=== PATIENT | male | born 1960 | race Caucasian/White ===

== ENCOUNTER 2017-04-23 17:44 | Emergency (ER) | payer SELFPAY ==
[~2017-04-23] VITALS: Ht 185.4 cm; Wt 110.0 kg
[~2017-04-23 17:44] MED LIST: HYDR-3677; HYDR10TA16 PO; NAPR-576 PO; SOMA350T PO
[2017-04-23 17:46] VITALS: BP 125/74; PULSE 72; RESP 20; TEMP 98.4; O2SAT 97
[2017-04-23] MEDS ORDERED: SOMA350T PO (17:58)
[2017-04-23] MEDS ORDERED: MORP1TAB26 PO (18:03)
[2017-04-23] MEDS ORDERED: NAPR500T PO (18:03)
[2017-04-23] MEDS ORDERED: HYDR10SO2 (18:03)
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
[2017-04-23] MEDS ORDERED: COLY4000S PO (18:46)
--- NOTE | 2017-04-23 18:51 | RADRPT ---
EXAM DATE/TIME: 04/23/2017 18:22 [facility] COMPARISON: No previous studies available for comparison. INDICATIONS : Constipation for 1 week. MEDICAL HISTORY : None. SURGICAL HISTORY : None. ENCOUNTER: Initial ACUITY: 1 week PAIN SCORE: 10/10 LOCATION: Bilateral rectum. FINDINGS: Moderate to large stool in the colon, especially the rectum. No small bowel or gastric distention. No free air. CONCLUSION: Moderate to large colonic stool. Nonobstructive pattern. Mario Batista MD on April 23, 2017 at 18:49 Board Certified Radiologist. This report was verified electronically.
== END 2017-04-23 19:17 | disposition home or self-care (01) ==
LOC: NEPE 17:44
DX: K59.00 Constipation, unspecified (principal)
CPT/HCPCS: 74020; 99284

== ENCOUNTER 2017-12-02 17:35 | Emergency (ER) | payer SELFPAY ==
[~2017-12-02 17:35] MED LIST changes: +COLY4000S PO; -HYDR-3677; +HYDR10SO2; -HYDR10TA16 PO; +MORP1TAB26 PO; -NAPR-576 PO; +NAPR500T2 PO
[2017-12-02 18:17] VITALS: BP 154/83; PULSE 65; RESP 16; TEMP 98.8; O2SAT 98
[2017-12-02 20:46] VITALS: BP 162/80; PULSE 57; RESP 18; O2SAT 96
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
[2017-12-02 21:16] LABS: AUTOMATED NEUTROPHIL # 8.3 TH/MM3 (1.8-7.7); BASOPHIL % 0.3 % (0.0-2.0); EOSINOPHIL # 0.2 TH/MM3 (0-0.4); EOSINOPHIL % 1.5 % (0.0-4.0); HEMATOCRIT 39.5 % (39.0-51.0); HEMOGLOBIN 13.7 GM/DL (13.0-17.0); LYMPH % 8.9 % (9.0-44.0); LYMPHOCYTE # 0.9 TH/MM3 (1.0-4.8); MEAN CELL VOLUME 90.3 FL (80.0-100.0); MEAN CORPUSCULAR HEMOGLOBIN 31.4 PG (27.0-34.0); MEAN CORPUSCULAR HGB CONC 34.7 % (32.0-36.0); MEAN PLATELET VOLUME 9.4 FL (7.0-11.0); MONO % 7.7 % (0.0-8.0); MONOCYTE # 0.8 TH/MM3 (0-0.9); NEUT % 81.6 % (16.0-70.0); PLATELET COUNT 196 TH/MM3 (150-450); RED BLOOD COUNT 4.38 MIL/MM3 (4.50-5.90); RED CELL DISTRIBUTION WIDTH 13.2 % (11.6-17.2); WHITE BLOOD COUNT 10.2 TH/MM3 (4.0-11.0)
[2017-12-02 21:30] LABS: BICARBONATE 25.2 MEQ/L (21.0-32.0); CALCIUM 9.1 MG/DL (8.5-10.1); CREATININE 1.11 MG/DL (0.60-1.30)
[2017-12-02 21:42] LABS: INTERNATIONAL NORMALIZED RATIO 1.1 RATIO
--- NOTE | 2017-12-02 21:47 | RADRPT ---
EXAM DATE/TIME: 12/02/2017 21:26 [facility] COMPARISON: No previous studies available for comparison. INDICATIONS : Right flank pain. ORAL CONTRAST: No oral contrast ingested. RADIATION DOSE: 8.54 CTDIvol (mGy) MEDICAL HISTORY : None SURGICAL HISTORY : Cholecystectomy. ENCOUNTER: Initial ACUITY: 1 day PAIN SCALE: 5/10 LOCATION: Right flank TECHNIQUE: Volumetric scanning of the abdomen and pelvis was performed. Using automated exposure control and ad justment of the mA and/or kV according to patient size, radiation dose was kept as low as reasonably achievable to obtain optimal diagnostic quality images. DICOM format image data is available electro nically for review and comparison. FINDINGS: LOWER LUNGS: The visualized lower lungs are clear. LIVER: Homogeneous density without lesion. There is no dilation of the biliary tree. Previous cholecystecto my. SPLEEN: Normal size without lesion. PANCREAS: Within normal limits. KIDNEYS: There is a 4 mm stone in the proximal to mid right ureter at the level of L3/L4. There is associated mild hydronephrosis as well as perinephric edema. Stone margins appear irregular. There is a 2 mm non obstructing stone of the right mid zone. No stones or hydronephrosis/hydroureter on the left. ADRENAL GLANDS: Within normal limits. VASCULAR: There is no aortic aneurysm. BOWEL/MESENTERY: The stomach, small bowel, and colon demonstrate no acute abnormality. There is no free intraperitone al air or fluid. Normal appendix. ABDOMINAL WALL: Within normal limits. RETROPERITONEUM: There is no lymphadenopathy. BLADDER: No wall thickening or mass. REPRODUCTIVE: Within normal limits. INGUINAL: There is no lymphadenopathy or hernia. MUSCULOSKELETAL: No acute bony abnormality demonstrated. CONCLUSION: 1. 4 mm stone with irregular margins in the proximal to mid right ureter causing mild obstructive uro luciana and including perinephric edema. The stone is difficult to clearly visualize on the initial sco ut radiograph. 2. Also a 2 mm nonobstructing stone of the right mid zone. Mario Batista MD on December 02, 2017 at 21:40 Board Certified Radiologist. This report was verified electronically.
[2017-12-02 22:53] LABS: BILIRUBIN, URINE NEG (NEG); BLOOD, URINE SMALL (NEG); GLUCOSE,URINE NEG (NEG); HYALINE CAST, URINE 2 /lpf (RARE); KETONE, URINE NEG (NEG); MUCUS URINE FEW /lpf (OCC); NITRITE,URINE NEG (NEG); PH, URINE 5.5 (5.0-8.5); SQUAMOUS EPITHELIAL CELL URINE 1 /hpf (0-5); URINE COLOR YELLOW (YELLW/STRAW); URINE LEUKOCYTE ESTERASE NEG (NEG)
[2017-12-02] MEDS ORDERED: TAMS5CAP PO (23:40)
[2017-12-02] MEDS ORDERED: ZOFR4TAB PO (23:40)
[2017-12-03 00:28] VITALS: BP 164/71; PULSE 68; RESP 18; O2SAT 95
== END 2017-12-03 00:59 | disposition home or self-care (01) ==
LOC: NEPD 17:35
DX: N13.2 Hydronephrosis with renal and ureteral calculous obstruction (principal); R31.9 Hematuria, unspecified
CPT/HCPCS: 74176; 80048; 81001; 85025; 85610; 85730; 99284